=== PATIENT | male | born 1975 | race Caucasian/White ===

== ENCOUNTER 2017-10-18 10:08 | Observation (INO) | payer BC ==
[2017-10-18] MEDS ORDERED: Morphine INJ* 4 MG/ML 1 ML CARPUJECT IV ONE ×2 (10:56→13:01)
[2017-10-18] MEDS ORDERED: Ondansetron INJ* 2 MG/ML VIAL IV ONE ×2 (10:56→13:01)
[2017-10-18 11:19] LABS: ABS Basophils 0 10^3/ul (0-0.2); ABS Eosinophils 0 10^3/ul (0-0.6); ABS Lymphocytes 0.9 10^3/ul (1.0-4.8); ABS Monocytes 0.3 10^3/ul (0-0.8); ABS Neutrophils 8.5 10^3/ul (1.5-7.7); ABS Nucleated RBC 0 10^3/ul; Eosinophil % 0.2 % (0-6); Hematocrit 42 % (42-52); Hemoglobin 14.2 g/dl (14.0-18.0); Mean Corpuscular HGB Conc 34 g/dl (31-36); Mean Corpuscular Hemoglobin 32 pg (27-31); Mean Corpuscular Volume 95 fL (80-94); Mean Platelet Volume 7 um3 (7.4-10.4); Nucleated Red Blood Cells % 0; Platelet Count 245 10^3/ul (150-450); Red Blood Count 4.42 10^6/ul (4.0-5.4); Red Cell Distribution Width 13 % (10.5-15); White Blood Count 9.6 10^3/ul (3.5-10.8)
[2017-10-18 11:27] LABS: INR 1.06 (0.77-1.02)
[2017-10-18 11:30] LABS: EGFR Non-African American 76.7 (>60)
--- NOTE | 2017-10-18 12:11 | RAD ---
Indication: Right upper quadrant pain. Real-time sonography of the right upper quadrant was performed. The liver is normal in size. No focal lesions are noted. Slightly prominent intrahepatic ducts are noted. The common duct is not dilated measuring 4 mm. The gallbladder demonstrates small multiple gallstones with posterior acoustic shadowing. No pericholecystic fluid is identified. The pancreas head, neck and proximal body demonstrates no mass or pancreatic duct dilatation. The right kidney measures 11.3 x 6.4 x 5.7 cm. No hydronephrosis is noted. The pancreas demonstrates no mass or pancreatic duct dilatation. IMPRESSION: Cholelithiasis. Slight prominence of the intrahepatic ducts although the common duct is not dilated.
[2017-10-18 13:10] LABS: Urine Appearance Clear; Urine Blood Negative (Negative); Urine Color Yellow; Urine Ketones 1+ (Negative); Urine Protein Negative (Negative); Urine Specific Gravity 1.029 (1.010-1.030); Urine Urobilinogen Negative (Negative)
[2017-10-18] MEDS ORDERED: Ondansetron INJ* 2 MG/ML VIAL IV PRN (13:54)
[2017-10-18] MEDS ORDERED: HYDROmorphone INJ* 2 MG/ML CARPUJECT SYRINGE IV PRN (13:54)
[2017-10-18] MEDS ORDERED: oxyCODONE/Acetamin 5/325 MG* TAB PO PRN (13:54)
[2017-10-18] MEDS ORDERED: HYDROmorphone INJ* 1 MG/ML CARPUJECT SYRINGE IV SLOW PU ONE (15:03)
[2017-10-18] MEDS: Ketorolac INJ* 30 MG/ML 1 ML VIAL IV SCH ×2 (15:17→21:05)
--- NOTE | 2017-10-18 20:59 | HP ---
CC: Derik Walsh MD; Meghna Monique MD HISTORY AND PHYSICAL: DATE OF ADMISSION: 10/18/17 CHIEF COMPLAINT: Abdominal pain. HISTORY OF PRESENT ILLNESS: The patient is a 42-year-old male who has awakened with intense pain in the right upper quadrant of the abdomen, this was in the middle of the night. He has had on and off pains like this over the last couple of years, the most recent attack he thinks was 10/04/17, which l asted about 14 hours. The pain is in the right upper quadrant, does radiate into his back as well. Khushboo roberson has a little queasiness and bloating. He has not really been throwing up. He felt like he was con stipated, so he took Ativan and had some loose stool, it was pretty normal color. The urine has been normal color. He has not had any recent accident, injury or trauma and he is usually reasonably fit and healthy. FAMILY HISTORY: Benign. No bleeding tendencies or anesthesia reactions. No abdominal issues that khushboo roberson knows. SOCIAL HISTORY: He is not . He is a nonsmoker. Occasional drinker. 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 He is reasonably fit and active. He sometimes runs 5K and 10K races, and he also bikes. REVIEW OF SYSTEMS: Benign. No cardiac disease, chest pain, heart pain, angina pain. No bronchitis or lung disease. No hepatitis or jaundice. No diabetes, thyroid or other endocrine. No Crohn disea se, colitis or other GI disease. No kidney stones or chronic bladder infections. No major neuromusc ular psych issues. PHYSICAL EXAMINATION GENERAL: He is a well-developed, well-nourished male consistent with stated age. Skin is warm and we ll perfused. He is not diaphoretic. He is not jaundiced. VITAL SIGNS: Temperature is 98.8, heart rate is 62 and regular, respirations 16 unlabored; O2 satura tion 97%; blood pressure 120/59. He is 5 feet 10 inches, 165 pounds with BMI of 24. NECK: Supple without any adenopathy. LUNGS: Clear bilaterally. HEART: Regular without any abnormal sounds. ABDOMEN: Soft, quite tender in the right upper quadrant. He is a little histrionic, so it is hard t o be sure whether there is a Gold sign or not. I do not get any definite guarding or peritonitis. There is no palpable masses. There is no obvious hernias. EXTREMITIES: Well perfused and without edema. LABORATORY STUDIES: Laboratory studies reveal normal white blood count, normal hemoglobin, normal p latelet count, normal coagulation, normal electrolytes, normal renal function, normal liver chemistri es, normal C-reactive protein, normal lipase. DIAGNOSTIC DATA: His ultrasound of the gallbladder shows cholelithiasis with a questionable prominen ce of the intrahepatic duct. There are no acute changes to suggest acute inflammation or edema. IMPRESSION: A 42-year-old male with signs and symptoms consistent with cholelithiasis and biliary co lic. He is having too much pain to be able to go home, so will be admitted for hydration and pain co ntrol and antiemetics and he understands that he may need surgery for his gallbladder in the near fut ure. All of his questions have been answered and he agrees to proceed in the fashion outlined. [id number]/[facility] #: [id number]
[2017-10-19] MEDS: Ketorolac INJ* 30 MG/ML 1 ML VIAL IV SCH ×2 (03:10→08:50)
[2017-10-19 05:18] LABS: ABS Basophils 0 10^3/ul (0-0.2); ABS Eosinophils 0.1 10^3/ul (0-0.6); ABS Lymphocytes 1.8 10^3/ul (1.0-4.8); ABS Monocytes 0.5 10^3/ul (0-0.8); ABS Neutrophils 3.3 10^3/ul (1.5-7.7); ABS Nucleated RBC 0 10^3/ul; Eosinophil % 1.3 % (0-6); Hematocrit 37 % (42-52); Hemoglobin 12.3 g/dl (14.0-18.0); Lymphocyte % 31.9 % (25-47); Mean Corpuscular HGB Conc 34 g/dl (31-36); Mean Corpuscular Hemoglobin 32 pg (27-31); Mean Corpuscular Volume 94 fL (80-94); Mean Platelet Volume 7 um3 (7.4-10.4); Nucleated Red Blood Cells % 0.1; Platelet Count 207 10^3/ul (150-450); Red Blood Count 3.88 10^6/ul (4.0-5.4); Red Cell Distribution Width 13 % (10.5-15); White Blood Count 5.6 10^3/ul (3.5-10.8)
[2017-10-19 05:40] LABS: EGFR Non-African American 89.4 (>60)
[2017-10-19 07:23] VITALS: BP 104/59
--- NOTE | 2017-10-20 02:22 | DS ---
CC: Dr. Meghna Monique * DISCHARGE SUMMARY: DATE OF ADMISSION: 10/18/17 DATE OF DISCHARGE: 10/19/17 PRINCIPAL ADMITTING DIAGNOSIS: Biliary colic. OPERATION DONE THIS ADMISSION: None. HOSPITAL COURSE: The patient came to emergency room and was admitted with evidence of biliary colic. He had normal white blood count and normal bilirubin. He was maintained on pain medicine, intravenous fluids, and by the next morning, his pain was down substantially. He did have a slight elevation of his transaminases. His bilirubin was still normal. He is discharged home on 10/19/17, tolerating liquids and with the understanding that he needs to follow up in short order with the office. I have discussed with him the need for laparoscopic cholecystectomy that we should do it relatively soon as he is at risk for repeated attacks and the patient would certainly call in the interim if anything new develops or change in color of his urine. We have gone over all of these issues, discharge instructions and we will see him back in the office in the near future. [id number]/[facility] #: [id number] DIMA
== END 2017-10-19 11:00 | disposition home or self-care (01) ==
LOC: ED 10:08 → SSU 13:54
PROVIDERS: ADMIT Surgery; ATTEND Surgery
DX: K80.50 Calculus of bile duct without cholangitis or cholecystitis without obstruction (principal); K80.80 Other cholelithiasis without obstruction; R10.9 Unspecified abdominal pain
CPT/HCPCS: 36415; 76705; 80053; 81003; 82150; 82550; 83605; 83690; 83735; 84484; 85025; 85610; 85730; 86140; 93005; 99285; G0378; J1170; J1885; J2270; J2405

== ENCOUNTER 2019-01-25 11:30 | Emergency (ER) | payer BC ==
[2019-01-25] MEDS ORDERED: Tenofovir/Emtricitab 200/300 * TAB PO ONE ×2 (11:37→11:42)
[2019-01-25] MEDS ORDERED: Raltegravir* 400 MG TAB PO ONE ×2 (11:37→11:43)
[2019-01-25] MEDS ORDERED: Tetan/Diph/Pertus SYR(Tdap)* 0.5 ML SYR(BOOSTRIX) use SYR IM ONE (11:44)
--- NOTE | 2019-01-25 11:45 | UC ---
General HPI - HPI Summary HPI Summary: 43 yo male presents with exposure to HIV. He tells me that on 01/23 he had unprotected anal intercourse with a male partner. After intercourse, his partner mentioned that he was HIV positive. Pt called Dr. Albarran's office today and was advised to come to for PEP and labwork. Pt denies any symptoms at this time. He has taken PEP therapy before, but never tested positive for HIV - per pt. Denies abnormal weight loss, fever, chills, abdominal pain, n/v, dysuria. - History of Current Complaint Stated Complaint: PERSONNAL Time Seen by Provider: 01/25/19 11:36 Hx Obtained From: Patient Onset/Duration: Sudden Onset Current Severity: None - Allergy/Home Medications Allergies/Adverse Reactions: Allergies Allergy/AdvReac Type Severity Reaction Status Date / Time No Known Allergies Allergy Verified 01/25/19 12:34 PMH/Surg Hx/FS Hx/Imm Hx - Additional Past Medical History Additional PMH: BPH - Surgical History Surgical History: Yes Surgery Procedure, Year, and Place: hydrocele - Family History Known Family History: Positive: Other - Cholecystitis Negative: Hypertension, Diabetes - Social History Occupation: Employed Full-time Lives: With Family Alcohol Use: Occasionally Alcohol Amount: LAST DRINK 3 DAYS AGO Substance Use Type: None Smoking Status (MU): Never Smoked Tobacco - Immunization History Most Recent Influenza Vaccination: none Most Recent Pneumonia Vaccination: none Review of Systems All Other Systems Reviewed And Are Negative: Yes Constitutional: Positive: Other - HIV exposure Skin: Positive: Negative Respiratory: Positive: Negative Cardiovascular: Positive: Negative Gastrointestinal: Positive: Negative Neurovascular: Positive: Negative Neurological: Positive: Negative Psychological: Positive: Negative Physical Exam - Summary Physical Exam Summary: GENERAL: NAD. WDWN. No pain distress. SKIN: No rashes, sores, lesions, or open wounds. NECK: Supple. Nontender. No lymphadenopathy. CHEST: CTAB. No r/r/w. No accessory muscle use. Breathing comfortably and in no distress. CV: RRR. Without m/r/g. Pulses intact. Cap refill <2seconds ABDOMEN: Soft. NTTP. No distention or guarding. Bowel sounds present NEURO: Alert. PSYCH: Age appropriate behavior. Triage Information Reviewed: Yes Vital Signs: Vital Signs: Temp Pulse Resp BP Pulse Ox 98.4 F 61 14 123/81 97 01/25/19 12:29 01/25/19 12:29 01/25/19 12:29 01/25/19 12:29 01/25/19 12:29 Vital Signs Reviewed: Yes Course/Dx - Course Course Of Treatment: He declined genital/rectal exam today as he says he has no symptoms. Labwork drawn for CBC, CMP, hep B/C, HIV, and RPR. Urine obtained for GC/C. He was given a 5 day supply of Truvada and Ralteglovir in the clinic. Rx sent to pharmacy. Instructed to f/u with Dr. Albarran as soon as possible. - Diagnoses Provider Diagnosis: HIV exposure Discharge - Sign-Out/Discharge Documenting (check all that apply): Patient Departure All imaging exams completed and their final reports reviewed: No Studies - Discharge Plan Condition: Stable Disposition: HOME Prescriptions: Raltegravir* [Isentress*] 400 mg PO BID #50 tab Tenofovir/Emtricitab 200/300 * [Truvada 200/300 mg*] 1 tab PO DAILY #25 tab Patient Education Materials: HIV Transmission (ED), Postexposure Prophylaxis ( ED) Referrals: Meghna Monique MD [Medical Doctor] - Deion HENRY,Pacheco Leija [Medical Doctor] - As Soon As Possible Additional Instructions: If you develop a fever, shortness of breath, chest pain, new or worsening symptoms - please call your PCP or go to the ED. 1) Take your medicine as directed 2) Please schedule an appointment with Dr. Albarran as soon as possible - Billing Disposition and Condition Condition: STABLE Disposition: Home
[2019-01-25 12:34] VITALS: BP 123/81
[2019-01-25 16:46] LABS: ABS Basophils 0 10^3/ul (0-0.2); ABS Eosinophils 0.2 10^3/ul (0-0.6); ABS Lymphocytes 1.7 10^3/ul (1.0-4.8); ABS Monocytes 0.4 10^3/ul (0-0.8); ABS Neutrophils 2.7 10^3/ul (1.5-7.7); ABS Nucleated RBC 0 10^3/ul; Eosinophil % 4.5 %; Hematocrit 42 % (36-46); Hemoglobin 14.1 g/dL (14.0-18.0); Lymphocyte % 33.4 %; Mean Corpuscular HGB Conc 34 g/dL (31-36); Mean Corpuscular Hemoglobin 33 pg (27-31); Mean Corpuscular Volume 97 fL (80-94); Mean Platelet Volume 7.5 fL (7.4-10.4); Nucleated Red Blood Cells % 0.1; Platelet Count 220 10^3/uL (150-450); Red Blood Count 4.31 10^6 /uL (4.18-5.48); Red Cell Distribution Width 12 % (10.5-15)
[2019-01-25 16:55] LABS: Albumin 4.3 g/dL (3.2-5.2); Calcium 9.5 mg/dL (8.6-10.3); Potassium 4.4 mmol/L (3.5-5.0); Total Bilirubin 0.8 mg/dL (0.2-1.0)
[2019-01-25 17:01] LABS: Albumin/Globulin Ratio 1.7 (1-3); BUN/Creatinine Ratio 21.2 (8-20); EGFR African American 117.9 (>60); EGFR Non-African American 97.5 (>60); Globulin 2.6 g/dL (2-4); Total Protein 6.9 g/dL (6.4-8.9)
[2019-01-25 17:24] LABS: Rapid HIV 1 Nonreactive (Nonreactive)
[2019-01-26 09:53] LABS: Hepatitis B Surface Antigen Nonreactive (Nonreactive)
[2019-01-26 09:56] LABS: Hepatitis B Surface AB Immune (Immune)
[2019-01-26 10:15] LABS: Hepatitis C Antibody Nonreactive (Nonreactive)
[2019-01-26 13:14] LABS: Neisseria gonorrhoeae (GC) RNA Negative (Negative)
== END 2019-01-25 13:00 | disposition home or self-care (01) ==
LOC: UCEAST 11:30
DX: Z20.6 Contact with and (suspected) exposure to human immunodeficiency virus [HIV] (principal); Z23 Encounter for immunization; N40.0 Benign prostatic hyperplasia without lower urinary tract symptoms
CPT/HCPCS: 36415; 80053; 85025; 86703; 86706; 86780; 86803; 87340; 87491; 87591; 90471; 90715; 99213; G0463

== ENCOUNTER → 2019-02-04 06:37 | Day surgery (SDC) | payer BC ==
[~2019-02-04 06:37] MED LIST: Acetaminophen TAB* 325 MG ONE; Acetaminophen TAB* 325 MG PO ONE; Acetaminophen TAB* 325 MG PO PRN; Buffered Lidocaine 1% SYRIN* 1 ML/SYRINGE INTRADERM ONE; Bupivacaine 0.25% EPI 200,000* 30 ML SDV ONE; Bupivacaine 0.25% W/EPI* 10 ML SDV ONE; Calcium CHLORIDE 10% SYRINGE* 1 GM/10 ML ONE; Cisatracurium* 2 MG/ML MDV 5 ML ONE; Dexamethasone IV* 4 MG/ML 1 ML (4 MG) ONE; DiMENhydriNATE IV* 50 MG/ML VIAL IV PUSH PRN; EPHEDrine (Pressors)* 50 MG/ML VIAL ONE; Famotidine IV* 10 MG/ML 2 ML (20 mg) ONE; Glycopyrrolate IV* 0.2 MG/ML 1 ML VIAL ONE; HYDROcodone/ACETAMIN 5-325 MG* 1 TAB ONE; HYDROcodone/ACETAMIN 5-325 MG* 1 TAB PO PRN; Ketorolac INJ* 30 MG/ML 1 ML VIAL ONE; Lactated Ringers 1000 ML Bag* 1,000 ML IV SCH; Midazolam* 1 MG/ML 2 ML VIAL (2 MG) ONE; Naloxone* 0.4 MG/ML 1 ML VIAL IV PRN; Ondansetron INJ* 2 MG/ML VIAL IV PRN; Ondansetron INJ* 2 MG/ML VIAL ONE; PROCHLORPERAZINE INJ 5 MG/ML 2 ML VIAL IV PRN; Propofol* 10 MG/ML 20 ML BTL ONE; Succinylcholine* 20 MG/ML 10 ML VIAL ONE; ceFAZolin 2 GM PREMIX in ORs 2 GM/50 ML BAG IVPB ONE; diPHENhydraMINE IV* 50 MG/ML 1 ml VIAL (BENADRYL) IV PRN; fentaNYL* 50 MCG/ML 2 ML VIAL (100 MCG VIAL) IV PRN; fentaNYL* 50 MCG/ML 2 ML VIAL (100 MCG VIAL) ONE
[2019-02-04 12:56] VITALS: BP 129/67
--- NOTE | 2019-02-04 22:25 | OP ---
CC: Dr. Meghna Monique * DATE OF OPERATION: 02/04/19 - [facility] DATE OF : 71 SURGEON: Derik Walsh MD [employer] SUPERVISOR: Erica Younger NP ANESTHESIOLOGIST: Dr. Cotter. ANESTHESIA: General anesthetic, local infiltration by the surgeon. PRE-OP DIAGNOSIS: Symptomatic cholelithiasis. POST-OP DIAGNOSIS: Symptomatic cholelithiasis. OPERATIVE PROCEDURE: Laparoscopic cholecystectomy. DESCRIPTION OF PROCEDURE: The patient was supine on the operating table. After adequate general anesthetic, compression stockings, Oli Hugger warmer, and intravenous antibiotics, the abdomen was clipped and prepped with antiseptic , draped in sterile fashion. Local infiltrative anesthesia was administered. A small umbilical incision was created. Blunt port cannula was placed at the umbilicus. Insufflation was carried out with carbon dioxide. Additional cannulae, 12 mm subxiphoid and 5 mm right upper quadrant and right anterior axillary line placed under small stab wounds under direct vision. The gallbladder was tented upwards. Areolar tissue was taken down off the cystic duct and cystic artery which were readily identified, clipped and divided. Gallbladder was taken off the liver bed without any spillage. It was brought out through the subxiphoid port without spillage. It was sent in formalin to pathologic evaluation. Hemostasis was obtained using cautery and Surgicel. Cannulae were removed. Pneumoperitoneum allowed to escape. Umbilical fascia was closed with 0 Vicryl and skin with 5-0 Vicryl in all cases followed by Steri -Strips. He tolerated the procedure well, was awakened, and extubated and brought to Recovery in good condition. COMPLICATIONS: No complications. DRAINS: No drains. SPECIMEN: Pathologic specimen was gallbladder. COUNTS: Sponge and instrument counts correct. ESTIMATED BLOOD LOSS: 30 mL. [id number]/[facility] #: [id number] [facility]
== END | disposition home or self-care (01) ==
LOC: OR 06:37
PROVIDERS: ATTEND Surgery
DX: K80.10 Calculus of gallbladder with chronic cholecystitis without obstruction (principal)
CPT/HCPCS: 88304; A9270-GY; J0330; J0690; J1100; J1885; J2250; J2405; J2704; J3010